=== PATIENT | male | born 1995 | race Caucasian/White ===

== ENCOUNTER 2017-04-15 15:30 | Emergency (ER) | payer SELFPAY ==
[~2017-04-15 15:30] MED LIST: BACT800T5 PO; CEPH500C3 PO; IBUP800T23 PO
[2017-04-15 15:34] VITALS: BP 134/93; PULSE 89; RESP 14; TEMP 98.4; O2SAT 99
--- NOTE | 2017-04-15 16:05 | PD ---
HPI Chief Complaint: Oral / Dental Pain or Problem Time Seen by Provider: 16:02 Travel History International Travel<30 days: No Contact w/Intl Traveler<30days: No Traveled to known affect area: No History of Present Illness HPI 21-year-old male presents for evaluation of pain. For the past year he has had pain in the case to the right mandibular first molar. Pain is mild, throbbing, constant, worse with chewing. This is been ongoing for one year but he does not currently have dental insurance and this is the reason that he came here for evaluation. He denies fevers, chills. He has no other complaints at this time. History Social History Alcohol Use: No Tobacco Use: No Allergies-Medications (Allergen,Severity, Reaction): Coded Allergies: No Known Allergies (Unverified , 10/02/15) Reported Meds & Prescriptions Reported Meds & Active Scripts Active No Active Prescriptions or Reported Medications Review of Systems General / Constitutional: No: Fever, Chills HENT: Positive: Dental Difficulties Physical Exam Narrative GENERAL: Well-developed well-nourished male in no acute distress SKIN: Warm and dry. HEAD: Atraumatic. Normocephalic. EYES: Pupils equal and round. No scleral icterus. No injection or drainage. ENT: No nasal bleeding or discharge. Mucous membranes pink and moist. Dental decay localized to the right mandibular first molar, there is no gingival edema , no facial edema. NECK: Trachea midline. No JVD. CARDIOVASCULAR: Regular rate and rhythm. No murmur appreciated. RESPIRATORY: No accessory muscle use. Clear to auscultation. Breath sounds equal bilaterally. Data Data Last Documented VS Vital Signs Date Time Temp Pulse Resp B/P (MAP) Pulse Ox O2 Delivery O2 Flow Rate FiO2 04/15/17 15:34 98.4 89 14 134/93 (107) 99 MDM Medical Screen Exam Complete: Yes Emergency Medical Condition: No Narrative Course It was recommended to the patient that he follow-up with a dentist for definitive therapy of his chronic dental pain. A medical screening exam was performed: At the time of evaluation the presenting medical condition was determined not to be of an emergent nature. The patient was given the option of receiving additional care, but declined. Patient was given options for additional community resources from which to obtain care. The Patient Has Been advised to seek medical attention for their presenting complaint. The patient has been advised to return to the ER at any time if an emergent condition develops. Primary Impression: Encounter for medical screening examination Scripts No Active Prescriptions or Reported Meds Meir Ferrer Apr 15, 2017 16:05
== END 2017-04-15 15:35 | disposition left against medical advice (07) ==
LOC: NEPK 15:30
DX: K08.89 Other specified disorders of teeth and supporting structures (principal)
CPT/HCPCS: 99281